=== PATIENT | female | born 1950 | race Caucasian/White ===

== ENCOUNTER 2017-01-28 15:28 | Inpatient (IN) | payer BC ==
[~2017-01-28] VITALS: Ht 165.1 cm; Wt 69.9 kg
--- NOTE | 2017-01-28 15:30 | NUR ---
BIB RA FROM [facility] PATIENT RECIEVED DIALYSIS 1.5 HOURS, PATIENT HAS ABDOMINAL DISTENTION, AND SOB, PATIENT IS NON VERBAL, PLACED ON MONITOR WITH MD AT BEDSIDE, RT AT BEDSIDE, NO OTHER MEDICAL COMPLAINTS NOTED.
[2017-01-28 15:35] VITALS: BP 129/67
[2017-01-28 15:57] LABS: BASOPHILS # (AUTO) 0.3 /CMM (0.0-0.2); BASOPHILS % (AUTO) 2.5 % (0.0-2.0); EOSINOPHILS # (AUTO) 0.2 /CMM (0.0-0.7); EOSINOPHILS % (AUTO) 1.9 % (0.0-6.0); HEMATOCRIT 34 % (33-45); HEMOGLOBIN 11.2 g/dL (11.5-14.8); LYMPHOCYTES % (AUTO) 15.1 % (20.0-44.0); MEAN CORPUSCULAR HEMOGLOBIN 28 PG (26.0-33.0); MEAN CORPUSCULAR HGB CONC 33 g/dl (31.0-36.0); MEAN CORPUSCULAR VOLUME 87 fL (82-100); MONOCYTES # (AUTO) 0.9 /CMM (0.1-1.30); MONOCYTES % (AUTO) 6.6 % (2.0-12.0); NEUTROPHILS # (AUTO) 9.6 /CMM (1.8-8.9); NEUTROPHILS % (AUTO) 73.9 % (43.0-81.0); PLATELET COUNT (AUTO) 522 /CMM (150-450); RDW COEFFICIENT OF VARIATION 20.3 (11.5-15.0); RED BLOOD CELL COUNT(AUTO) 3.93 MIL/uL (4.0-5.2)
[2017-01-28 16:15] LABS: CALCIUM, SERUM 9.1 mg/dL (8.5-10.1); CREATININE 1.7 mg/dL (0.6-1.3)
[2017-01-28 16:16] LABS: INR 1.15 (0.87-1.13); PROTHROMBIN TIME 12.1 SECS (9.5-12.7)
[2017-01-28 16:17] LABS: POTASSIUM 2.8 mmol/L (3.5-5.1)
[2017-01-28 16:20] LABS: ALBUMIN 2.7 g/dL (3.4-5.0); BILIRUBIN,DIRECT 0.1 mg/dL (0.0-0.2); BILIRUBIN,TOTAL 0.3 mg/dL (0.2-1.0); TOTAL PROTEIN, SERUM 9.5 g/dL (6.4-8.2)
[2017-01-28 16:27] LABS: TROPONIN I 0.086 ng/mL (0.00-0.056)
[2017-01-28 16:32] LABS: PARTIAL THROMBOPLASTIN TIME > 150 SEC (23-34)
[2017-01-28] MEDS ORDERED: IV SET PRIMARY PUMP SET 1 EA INFUS.SET MC ONE (16:32)
[2017-01-28] MEDS ORDERED: PIPERACILLIN /TAZOBACTAM 3.375 G VIAL IV ONE (16:32)
[2017-01-28 16:43] LABS: ABG BASE EXCESS -1.5 mmol/L; ABG PCO2 33.1 mmHg (35.0-45.0); ABG PH 7.442 (7.350-7.450); ABG PO2 80.9 mmHg (75.0-100.0); AaDO2 274.4 mmHg; MetHb 0.4 % (0.0-1.5); O2Hb 94.7 % (94.0-97.0); PEEP,BG 5 cm H2O; SITE, ABG Left Radial; VT, ABG 450 mL
[2017-01-28] MEDS ORDERED: FOLI0.8T23 GT (16:43)
[2017-01-28] MEDS ORDERED: ESCI10TA GT (16:43)
[2017-01-28] MEDS ORDERED: AMIN30LI4 GT (16:43)
[2017-01-28] MEDS ORDERED: IPRA0.2S9 IH (16:43)
[2017-01-28] MEDS ORDERED: BISA10SU8 RC (16:43)
[2017-01-28] MEDS ORDERED: ACID1TAB12 GT (16:43)
[2017-01-28] MEDS ORDERED: SIME80TA15 GT (16:43)
[2017-01-28] MEDS ORDERED: MULT-24 GT (16:43)
[2017-01-28] MEDS ORDERED: LANS30CA56 GT (16:43)
[2017-01-28] MEDS ORDERED: HEPA10009 SQ (16:43)
[2017-01-28] MEDS ORDERED: EPOE40002 SQ (16:43)
[2017-01-28] MEDS ORDERED: LEVA0.6320 IH (16:43)
[2017-01-28] MEDS ORDERED: SPIR50TA GT (16:43)
[2017-01-28] MEDS ORDERED: ACET650S26 GT (16:43)
[2017-01-28] MEDS ORDERED: METO25TA6 GT (16:43)
[2017-01-28] MEDS ORDERED: DIPH25CA6 GT (16:43)
[2017-01-28] MEDS ORDERED: ONDA-25 GT (16:43)
[2017-01-28] MEDS ORDERED: AMIO200T2 GT (16:43)
[2017-01-28] MEDS ORDERED: LORA0.5T GT (16:43)
[2017-01-28] MEDS ORDERED: INSU100V11 SQ (16:43)
[2017-01-28] MEDS ORDERED: NAPH1POW3 GT (16:45)
--- NOTE | 2017-01-28 16:53 | NUR ---
CALLED NURSING SUP. FOR NICOLE BED
[2017-01-28] MEDS ORDERED: PIPERACILLIN /TAZOBACTAM 3.375 G in IV D5W 50 ML IV ONE (17:00)
[2017-01-28 17:05] VITALS: BP 132/72
--- NOTE | 2017-01-28 17:27 | NUR ---
'S GROUP CALLED, SOLDERER ASSEMBLY REPAIR, PAGED TO CALL BACK
[2017-01-28] MEDS ORDERED: POTASSIUM CHLORIDE 20 MEQ TAB.PRT.SR PO ONE ×2 (17:30→17:59)
[2017-01-28 18:00] VITALS: BP 155/92
--- NOTE | 2017-01-28 18:00 | NUR ---
RN NOTES RECEIVED PT FROM ER IN ROOM 114-1, PT RESPONDS TO HER NAME, PT HAS CONTACT , NON VERBAL , TRACH /VENT DEPENDENT, TOLERATING CURRENT VENT SETTING WELL, ON TELE SR IN 90'S , GT FEEDING INTACT, LFA IV SITE #20 CDI, ADMISSION SKIN PHOTO TAKEN , WOUND CONSULT ORDERED , SR UP x3, CALL LIGHT WITHIN EASY REACH , CONTINUE TO MONITOR PT CLOSELY AND NOTIFY MD FOR ANY SIGNIFICANT CHANGES.
[2017-01-28] MEDS ORDERED: SIMETHICONE 80 MG TAB.CHEW GT PRN (18:30)
[2017-01-28] MEDS ORDERED: BISACODYL SUPP (10 MG) 10 MG/SUPP.RECT SUPP.RECT RC PRN (18:30)
[2017-01-28] MEDS ORDERED: HOME MED MISCELLANEOUS XX SCH (18:30)
[2017-01-28] MEDS ORDERED: LEVALBUTEROL HCL NEB 1.25 MG/0.5 ML VIAL.NEB NEB PRN (18:30)
[2017-01-28] MEDS ORDERED: ALBUTEROL FS 2.5 MG/0.5 ML VIAL.NEB NEB PRN (19:00)
[2017-01-28 20:00] VITALS: BP 88/54
--- NOTE | 2017-01-28 20:00 | NUR ---
NICOLE RN NOTE PT IN BED AWAKE. A/O X 1, UNABLE TO TALK DUE TO TRACH. REMAIN ON TRACH AND VENT SHIELY #6, AC 14, TV 450, FIO2 55%, PEEP 5, TOLERATING THE SETTING WELL. SUCTIONED HER FREQUENTLY DUE TO MODERATED THICK YELLOW SECRETIONS. ON TELE SR WITH 1ST DEGREE AV BLOCK, OCCASIONAL PVC'S HR 91. GT FEEDING STARTED NOVASOURCE AT 50 ML/HR, O ML RESIDUAL NOTED. KEPT HER HOB ELEVATED. Z GUARD APPLIED TO SACRUM AREA. DTR'S AT BED SIDE. REPOSITION HER Q2H. KEPT HER DRY AND CLEAN. ALL NEEDS ATTENDED. SIDE RAILS UP X 3 AND CALL LIGHT WITHIN REACH. CONTINUE TO MONITOR HER.
[2017-01-28 20:04] VITALS: BP 88/54
[2017-01-28] MEDS: RENAL NOVASOURCE 1,000 ML BOTTLE GT PRN (20:07)
[2017-01-28] MEDS: IPRATROPIUM NEB FS 0.5 MG/2.5 ML AMPUL.NEB IH SCH (20:09)
--- NOTE | 2017-01-28 20:30 | NUR ---
NICOLE RN NOTE DR SNELL INFORMED PT B/P IS RUNNING ON LOW SIDE 88/54, AND ALSO PTT GREATER THAN 150. DR WANTS TO HOLD HEPARIN FOR TONIGHT. AND NO NEW ORDER FOR BP, JUST CONTINUE TO MONITOR HER.
[2017-01-28] MEDS: HEPARIN SODIUM, PORCINE 5000 UNITS/1 ML VIAL SQ SCH (21:00)
[2017-01-28] MEDS ORDERED: PANTOPRAZOLE 40 MG TABLET.DR PO SCH (21:00)
[2017-01-28] MEDS: Z GUARD REMEDY 2 OZ OINT TP SCH (21:28)
[2017-01-28] MEDS: PANTOPRAZOLE 40 MG/PACK PACK GT SCH (21:29)
[2017-01-28 23:49] VITALS: BP 127/77
[2017-01-29] VITALS (9 sets, daily range): BP systolic 68–127; BP diastolic 40–77
--- NOTE | 2017-01-29 02:03 | NUR ---
NICOLE RN NOTE [facility] CALLED ME AND INFORMED ME THAT THIS PT ACCORDING TO SEPSIS CORE MEASURES PT NEED TO HAVE 2040 ML IV FLUIDS TO BE GIVEN. CALLED MD SNELL AND INFORMED HIM ABOUT THIS. PT STATES "THIS IS HEMODIALYSIS PT, NO IVF TO BE GIVEN". CHARGE NURSE MARLON ALSO INFORMED. Addendum: 01/29/17 at 0640 by GIORGIO VIRK RN PT STATES WRITTEN IN ERROR. STATES "THIS IS HEMODIALYSIS PT, NO IVF TO BE GIVEN, EXCEPT IV ATB'S".
[2017-01-29] MEDS: IPRATROPIUM NEB FS 0.5 MG/2.5 ML AMPUL.NEB IH SCH ×4 (02:11→19:52)
[2017-01-29] MEDS ORDERED: IV NS 0.9% 250 ML IV ONE (05:28)
[2017-01-29] MEDS ORDERED: IV SET PRIMARY PUMP SET 1 EA INFUS.SET MC ONE (05:29)
[2017-01-29] MEDS ORDERED: SECONDARY IV SET 1 EA INFUS.SET MC ONE (05:29)
[2017-01-29] MEDS: PIPERACILLIN /TAZOBACTAM 2.25 G in IV D5W 50 ML IV SCH ×4 (05:38→23:48)
--- NOTE | 2017-01-29 06:41 | NUR ---
NICOLE RN NOTE PT IN BED AWAKE, SON AT BED SIDE. NO DISTRESS OR DISCOMFORT NOTED. DENIES PAIN. ON TELE SR WITH 1ST DEGREE AV BLOCK HR 92. REPOSITIONED HER Q2H, KEPT HER CLEAN AND DRY Z GUARD APPLIED. SIDE RAILS UP X 2 AND CALL LIGHT WITHIN REACH. WILL ENDORSE TO DAY SHIFT NURSE FOR CONTINUE TO CARE.
--- NOTE | 2017-01-29 07:30 | NUR ---
NICOLE RN NOTE PT IN BED AWAKE.NO DISTRESS OR DISCOMFORT NOTED. DENIES PAIN. ON TELE SR WITH 1ST DEGREE AV BLOCK HR 92.I.V SITE CDI AND PATENT .SAFETY MEASURES IN PLACE BED IN LOW AND LOCKED POSITION.WILL CONTINUE TO MONITOR FOR CHANGES.
[2017-01-29 07:36] LABS: EOSINOPHILS # (AUTO) 0.2 /CMM (0.0-0.7); EOSINOPHILS % (AUTO) 2.1 % (0.0-6.0); HEMATOCRIT 33 % (33-45); HEMOGLOBIN 10.5 g/dL (11.5-14.8); LYMPHOCYTES # (AUTO) 1.5 /CMM (0.8-4.8); LYMPHOCYTES % (AUTO) 13.3 % (20.0-44.0); MEAN CORPUSCULAR HEMOGLOBIN 28 PG (26.0-33.0); MEAN CORPUSCULAR HGB CONC 32 g/dl (31.0-36.0); MEAN CORPUSCULAR VOLUME 88 fL (82-100); MONOCYTES # (AUTO) 0.8 /CMM (0.1-1.30); MONOCYTES % (AUTO) 6.9 % (2.0-12.0); NEUTROPHILS # (AUTO) 8.8 /CMM (1.8-8.9); NEUTROPHILS % (AUTO) 77.7 % (43.0-81.0); PLATELET COUNT (AUTO) 499 /CMM (150-450); RDW COEFFICIENT OF VARIATION 21.1 (11.5-15.0); RED BLOOD CELL COUNT(AUTO) 3.71 MIL/uL (4.0-5.2); WHITE BLOOD COUNT (AUTO) 11.4 K/uL (4.3-11.0)
[2017-01-29 07:57] LABS: CALCIUM, SERUM 8.8 mg/dL (8.5-10.1); CREATININE 2.3 mg/dL (0.6-1.3); PHOSPHORUS 3.1 mg/dL (2.5-4.9); POTASSIUM 2.9 mmol/L (3.5-5.1)
[2017-01-29 08:06] LABS: INR 1.01 (0.87-1.13); PROTHROMBIN TIME 10.8 SECS (9.5-12.7)
[2017-01-29] MEDS ORDERED: IV NS 0.9% 500 ML IV ONE (08:23)
--- NOTE | 2017-01-29 08:30 | NUR ---
PT HAS LOW B/P OF SBP 75. FAMILY PRESENT AT BEDSIDE.Kobi SNELL WAS NOTIFIED. RECEIVED NEW ORDER FOR BOLUS N.S 500 ML.ALL ORDERS NOTED AND CARRIED OUT.B.P RECHECKED AFTER 30 AFTER I.V FLUID ADMINISTRATION SBP 85/42. DR. FATIMA PRESENT AT BEDSIDE FOR EVALUATION.
[2017-01-29] MEDS: METOPROLOL TARTRATE 50 MG TABLET GT SCH ×2 (09:00→17:00)
[2017-01-29] MEDS: PROSOURCE / PROSTAT (PYXIS) 30 ML UDC GT SCH ×2 (09:00→16:57)
[2017-01-29] MEDS: Z GUARD REMEDY 2 OZ OINT TP SCH ×2 (09:00→21:32)
[2017-01-29] MEDS: VIT B CMPLX 3/FA/VIT C/BIOTIN 1 TAB TABLET GT SCH (09:07)
[2017-01-29] MEDS: AMIODARONE HCL 200 MG TABLET GT SCH (09:07)
[2017-01-29] MEDS: ACIDOPHILUS/BULGARICUS 1 EACH TAB.CHEW GT SCH ×2 (09:07→16:55)
[2017-01-29] MEDS: SPIRONOLACTONE 25 MG TABLET GT SCH (09:07)
[2017-01-29] MEDS: MULTIVITAMINS,THERAPEUTIC 1 UDTAB TABLET GT SCH (09:08)
[2017-01-29] MEDS: PANTOPRAZOLE 40 MG/PACK PACK GT SCH ×2 (09:08→21:29)
[2017-01-29] MEDS: NEUTRA PHOS 1 POWD.PACKET GT SCH ×2 (09:08→16:55)
[2017-01-29] MEDS: ESCITALOPRAM OXALATE (10 MG) 10 MG TABLET GT SCH (09:08)
[2017-01-29] MEDS: POTASSIUM CHLORIDE 20 MEQ POWDER PACKET NG SCH ×2 (09:11→10:51)
[2017-01-29] MEDS: HEPARIN SODIUM, PORCINE 5000 UNITS/1 ML VIAL SQ SCH ×2 (11:15→21:30)
[2017-01-29] MEDS: ACETAMINOPHEN 650 MG/20.3 ML UDC GT PRN ×2 (12:36→22:41)
[2017-01-29] MEDS: ALBUTEROL FS 2.5 MG/0.5 ML VIAL.NEB NEB SCH ×2 (13:25→19:52)
[2017-01-29] MEDS: RENAL NOVASOURCE 1,000 ML BOTTLE GT PRN (19:41)
--- NOTE | 2017-01-29 20:00 | NUR ---
NICOLE RN NOTE PT IN BED AWAKE. A/O X 2, UNABLE TO TALK DUE TO TRACH. PT ON MECHANICAL VENT. PORTEX #6 AC 14 TV 450 FIO2 55 PEEP 5. PT DENIES PAIN. NO DISTRESS OR DISCOMFORT NOTED. GTF NOVASOURCE INFUSING AT 30 ML/HR, 0 ML RESIDUAL NOTED. RATE IS REDUCED DURING THE DAY SHIFT PER DAY SHIFT NURSE WANTS RATE TO BE 30 ML/HR. PT IS TOLERATING THE FEEDING WELL. KEPT HOB ELEVATED. ON TELE SR WITH 1ST DEGREE AV BLOCK WITH BBB HR 89. REPOSITION HER Q2H. KEPT HER DRY AND CLEAN. ALL NEEDS ATTENDED. SIDE RAILS UP X 3 AND CALL LIGHT WITHIN REACH. VSS. B/P IS 102/67 AT THIS TIME. CONTINUE TO MONITOR HER.
--- NOTE | 2017-01-29 22:45 | NUR ---
NICOLE RN NOTE PT C/O MINOR PAIN IN ABD 10/21. TYLENOL 650 MG VIA GT GIVEN. CONTINUE TO MONITOR HER. SON AT BED SIDE.
[2017-01-30] VITALS: BP 99/58
[2017-01-30] MEDS: IPRATROPIUM NEB FS 0.5 MG/2.5 ML AMPUL.NEB IH SCH ×4 (00:36→19:26)
[2017-01-30] MEDS: ALBUTEROL FS 2.5 MG/0.5 ML VIAL.NEB NEB SCH ×4 (00:37→19:26)
[2017-01-30] MEDS: ONDANSETRON 4 MG TAB.RAPDIS PO PRN ×2 (01:45→21:09)
--- NOTE | 2017-01-30 01:52 | NUR ---
PRN ZOFRAN 4 MG VIA G TUBE GIVEN FOR C/O NAUSEA . WILL REASSESS. PRIMARY NURSE MADE AWARE .
--- NOTE | 2017-01-30 02:22 | NUR ---
NICOLE RN NOTE NAUSEA SUBSIDED. PT FALL ASLEEP, AROUSABLE. CONTINUE TO MONITOR HER. GTF INFUSING WELL, 0 ML RESIDUAL NOTED. REPOSITION HER Q2H. KEPT HER DRY AND CLEAN. ALL NEEDS ATTENDED.
[2017-01-30 04:00] VITALS: BP 96/59
[2017-01-30] MEDS: PIPERACILLIN /TAZOBACTAM 2.25 G in IV D5W 50 ML IV SCH ×2 (05:32→12:01)
--- NOTE | 2017-01-30 06:34 | NUR ---
NICOLE RN NOTE PT IN BED AWAKE, NO DISTRESS OR DISCOMFORT NOTED. DENIES PAIN. ON TELE SR WITH 1ST DEGREE AV BLOCK AND BBB HR 94. REPOSITIONED HER Q2H, KEPT HER CLEAN AND DRY Z GUARD APPLIED. SIDE RAILS UP X 2 AND CALL LIGHT WITHIN REACH. WILL ENDORSE TO DAY SHIFT NURSE FOR CONTINUE TO CARE.
[2017-01-30 06:57] LABS: EOSINOPHILS # (AUTO) 0.2 /CMM (0.0-0.7); EOSINOPHILS % (AUTO) 1.1 % (0.0-6.0); HEMATOCRIT 28 % (33-45); HEMOGLOBIN 9.1 g/dL (11.5-14.8); LYMPHOCYTES # (AUTO) 1.5 /CMM (0.8-4.8); LYMPHOCYTES % (AUTO) 10.3 % (20.0-44.0); MEAN CORPUSCULAR HEMOGLOBIN 29 PG (26.0-33.0); MEAN CORPUSCULAR HGB CONC 33 g/dl (31.0-36.0); MEAN CORPUSCULAR VOLUME 89 fL (82-100); MONOCYTES # (AUTO) 0.8 /CMM (0.1-1.30); MONOCYTES % (AUTO) 5.4 % (2.0-12.0); NEUTROPHILS # (AUTO) 12.2 /CMM (1.8-8.9); NEUTROPHILS % (AUTO) 83.2 % (43.0-81.0); PLATELET COUNT (AUTO) 457 /CMM (150-450); RDW COEFFICIENT OF VARIATION 21.1 (11.5-15.0); RED BLOOD CELL COUNT(AUTO) 3.11 MIL/uL (4.0-5.2); WHITE BLOOD COUNT (AUTO) 14.7 K/uL (4.3-11.0)
[2017-01-30 07:18] LABS: ALBUMIN 2.3 g/dL (3.4-5.0); BILIRUBIN,TOTAL 0.3 mg/dL (0.2-1.0); CALCIUM, SERUM 8.4 mg/dL (8.5-10.1); PHOSPHORUS 4.2 mg/dL (2.5-4.9); POTASSIUM 4.6 mmol/L (3.5-5.1); TOTAL PROTEIN, SERUM 8.4 g/dL (6.4-8.2)
[2017-01-30 07:20] LABS: TROPONIN I 0.029 ng/mL (0.00-0.056)
--- NOTE | 2017-01-30 07:30 | NUR ---
NICOLE RN NOTE PT IN BED AWAKE, NO DISTRESS OR DISCOMFORT NOTED. DENIES PAIN. ON TELE SR WITH 1ST DEGREE AV BLOCK AND BBB HR 94. REPOSITIONED HER Q2H, KEPT HER CLEAN AND DRY Z GUARD APPLIED. SIDE RAILS UP X 2 AND CALL LIGHT WITHIN REACH. SAFETY MEASURES IN PLACE.BED IN LOW AND LOCKED POSITION.WILL CONTINUE TO MONITOR CHANGES.
[2017-01-30 08:00] VITALS: BP 91/46
[2017-01-30] MEDS: ESCITALOPRAM OXALATE (10 MG) 10 MG TABLET GT SCH (08:50)
[2017-01-30] MEDS: SPIRONOLACTONE 25 MG TABLET GT SCH (08:50)
[2017-01-30] MEDS: PANTOPRAZOLE 40 MG/PACK PACK GT SCH ×2 (08:50→21:09)
[2017-01-30] MEDS: HEPARIN SODIUM, PORCINE 5000 UNITS/1 ML VIAL SQ SCH ×2 (08:51→21:11)
[2017-01-30] MEDS: VIT B CMPLX 3/FA/VIT C/BIOTIN 1 TAB TABLET GT SCH (08:52)
[2017-01-30] MEDS: AMIODARONE HCL 200 MG TABLET GT SCH (08:52)
[2017-01-30] MEDS: MULTIVITAMINS,THERAPEUTIC 1 UDTAB TABLET GT SCH (08:52)
[2017-01-30] MEDS: ACIDOPHILUS/BULGARICUS 1 EACH TAB.CHEW GT SCH ×2 (08:52→17:32)
[2017-01-30] MEDS: NEUTRA PHOS 1 POWD.PACKET GT SCH ×2 (08:52→17:32)
[2017-01-30] MEDS: PROSOURCE / PROSTAT (PYXIS) 30 ML UDC GT SCH ×2 (08:57→17:35)
[2017-01-30] MEDS: METOPROLOL TARTRATE 50 MG TABLET GT SCH ×2 (08:57→17:00)
[2017-01-30] MEDS: Z GUARD REMEDY 2 OZ OINT TP SCH ×2 (09:00→21:10)
--- NOTE | 2017-01-30 11:08 | NUR ---
WOUND CARE CONSULT: PT PRESENTS WITH INCONTINENCE OF LOOSE STOOL. PT IS IMMOBILE AND HAS EXCORIATED AREAS AND REDNESS TO PERIANAL AREA AND BUTTOCKS, PRESENT ON ADMISSION. RECOMMENDATIONS MADE FOR SKIN PROTECTION. DISCUSSED WITH NURSING STAFF. PT ON [place] ISOFLEX LOW AIRLOSS BED. ALL SKIN PROTECTION MEASURES IN PLACE. MD IN AGREEMENT WITH PLAN OF CARE. Addendum: 01/30/17 at 1110 by KELLEN FOUNTAIN WNDNU Amended: Links added.
[2017-01-30 12:00] VITALS: BP 96/68
[2017-01-30] MEDS ORDERED: SECONDARY IV SET 1 EA INFUS.SET MC ONE ×2 (14:47→17:29)
[2017-01-30 16:00] VITALS: BP_SYST 86; BP_SYST 99; BP_DIAS 55; BP_DIAS 63
[2017-01-30] MEDS: MEROPENEM 500 MG in IV NS 0.9% 50 ML IV SCH (17:31)
[2017-01-30 20:00] VITALS: BP 95/51
--- NOTE | 2017-01-30 20:00 | NUR ---
NICOLE RN NOTE PT IN BED SEMIFOWLER. A/O X 2-3, UNABLE TO TALK DUE TO TRACH. ABLE TO MAKE NEEDS KNOWN BY FACIAL EXPRESSIONS. REMAIN ON VENT AND TOLERATING THE SETTINGS. RT AT BED SIDE. O2 SAT 94%. GTF NOVASOURCE INFUSING WELL AT 30 mL/HR, 0 ML RESIDUAL NOTED. REPOSITION HER FOR SKIN MANAGEMENT AND WILL DO EVERY 2 HRS. SIDE RAILS UP X 3 AND CALL LIGHT WITHIN REACH. VSS. CONTINUE TO MONITOR HER. Addendum: 01/30/17 at 2049 by GIORGIO VIRK RN ON TELE SR WITH 1ST DEGREE AV BLOCK, BBB HR HR 81.
[2017-01-30] MEDS: LINEZOLID 600 MG TABLET PO SCH (21:09)
[2017-01-30] MEDS: MUPIROCIN OINT 2% 22 GM TUBE SCH (21:09)
[2017-01-30] MEDS: RENAL NOVASOURCE 1,000 ML BOTTLE GT PRN (21:26)
--- NOTE | 2017-01-30 21:45 | NUR ---
NICOLE RN NOTE PT IS C/O NAUSEA, ZOFRAN 4 MG VIA GT GIVEN. GTF INFUSING WELL, CONTINUE TO MONITOR HER.
--- NOTE | 2017-01-30 22:45 | NUR ---
NICOLE RN NOTE NAUSEA SUBSIDED. PT IN BED AWAKE. DENIES ANY DISCOMFORT.
[2017-01-31] VITALS: BP 95/49
[2017-01-31] MEDS: IPRATROPIUM NEB FS 0.5 MG/2.5 ML AMPUL.NEB IH SCH ×4 (00:40→20:07)
[2017-01-31] MEDS: ALBUTEROL FS 2.5 MG/0.5 ML VIAL.NEB NEB SCH ×4 (00:40→20:07)
[2017-01-31 04:00] VITALS: BP 91/42
[2017-01-31] MEDS: MEROPENEM 500 MG in IV NS 0.9% 50 ML IV SCH ×2 (05:28→17:06)
--- NOTE | 2017-01-31 06:36 | NUR ---
NICOLE RN NOTE PT IN BED ASLEEP, AROUSABLE. NO DISTRESS OR DISCOMFORT NOTED. DENIES PAIN.GTF INFUSING WELL, 0 ML RESIDUAL NOTED. ON TELE SR WITH 1ST DEGREE AV BLOCK, BBB. HR 76. REPOSITION HER Q2H, KEPT HER DRY AND CLEAN. ALL NEEDS ATTENDED. WILL ENDORSE TO DAY SHIFT NURSE FOR CONTINUE TO CARE.
--- NOTE | 2017-01-31 07:10 | NUR ---
RN INITIAL NOTE RECEIVED REPORT FORM GIORGIO VILLA PM SHIFT FOR TOÑO. PT A/OX2-3 NONVERBAL ABLE TO NOD TO NEEDS AND WANTS.TELE SR 1ST DEGREE AV BLOCK WITH BBB. VENT SHILEY #6 AC 14 TV 450 FIO2 55% PEEP 5. GTF NOVASOURCE 30ML/HR PLACEMENT CK FEEDING INTACT. IV LFA #20G PATENT FLUSHED AND INTACT, RCW JUAN ANTONIO CATH FOR HD. ALL SAFETY MEASURES IN PLACE. WILL CONTINUE TO MONITOR.
[2017-01-31] MEDS ORDERED: IV NS 0.9% 250 ML IV ONE (07:53)
[2017-01-31 08:00] VITALS: BP 89/58
[2017-01-31] MEDS: VIT B CMPLX 3/FA/VIT C/BIOTIN 1 TAB TABLET GT SCH (08:17)
[2017-01-31] MEDS: MULTIVITAMINS,THERAPEUTIC 1 UDTAB TABLET GT SCH (08:17)
[2017-01-31] MEDS: NEUTRA PHOS 1 POWD.PACKET GT SCH ×2 (08:17→17:15)
[2017-01-31] MEDS: ACIDOPHILUS/BULGARICUS 1 EACH TAB.CHEW GT SCH ×2 (08:17→17:13)
[2017-01-31] MEDS: ESCITALOPRAM OXALATE (10 MG) 10 MG TABLET GT SCH (08:17)
[2017-01-31] MEDS: METOPROLOL TARTRATE 50 MG TABLET GT SCH ×2 (08:18→17:00)
[2017-01-31] MEDS: LINEZOLID 600 MG TABLET PO SCH ×2 (08:18→21:38)
[2017-01-31] MEDS: PANTOPRAZOLE 40 MG/PACK PACK GT SCH ×2 (08:22→21:38)
[2017-01-31] MEDS: MUPIROCIN OINT 2% 22 GM TUBE SCH ×2 (08:22→21:38)
[2017-01-31] MEDS: Z GUARD REMEDY 2 OZ OINT TP SCH ×2 (08:23→21:39)
[2017-01-31] MEDS: HEPARIN SODIUM, PORCINE 5000 UNITS/1 ML VIAL SQ SCH ×2 (08:23→21:40)
[2017-01-31] MEDS: PROSOURCE / PROSTAT (PYXIS) 30 ML UDC GT SCH ×2 (08:26→17:14)
[2017-01-31] MEDS: SPIRONOLACTONE 25 MG TABLET GT SCH (08:29)
[2017-01-31] MEDS: AMIODARONE HCL 200 MG TABLET GT SCH (08:30)
--- NOTE | 2017-01-31 08:45 | NUR ---
RT PATIENT REC'D TRACHED ON [facility] VENT WITH SETTINGS SET BY MD OMER TOLERATED WELL. VENT ALARMS CHECKED + AUDIBLE. CUFF PRESSURE CHECKED MUD CLEANER OPERATOR. TRACH SECURE + IN PROPER POSITION. B/S DIM COARSE. SUCTIONED WITH MOD AMT PALE SEMITHICK SECRETIONS. PATIENT NON RESPONSIVE, APPEARS COMFORTABLE AND IN NO DISTRESS AT THIS TIME. AMBU BAG AT HOB. CONT CURRENT PLAN OF RESPIRATORY CARE. Addendum: 01/31/17 at 0848 by EMBER COOPER RT Amended: Links added.
--- NOTE | 2017-01-31 10:00 | NUR ---
RN NOTE HD TODAY. [facility]IER HD NURSE @ BEDSIDE.
[2017-01-31 12:00] VITALS: BP 85/50
[2017-01-31] MEDS ORDERED: ALBUMIN 25% 25 GM in PREMIX 1 EA IV PRN (12:00)
[2017-01-31] MEDS ORDERED: SECONDARY IV SET 1 EA INFUS.SET MC ONE (12:20)
[2017-01-31 16:00] VITALS: BP 100/43
[2017-01-31] MEDS: RENAL NOVASOURCE 1,000 ML BOTTLE GT PRN (17:07)
[2017-01-31] MEDS: NYSTATIN TOP POWDER 15 GM BOTTLE TP SCH (17:51)
--- NOTE | 2017-01-31 19:12 | NUR ---
RN CLOSING NOTE REPORT GIVEN TO GIORGIO RN PM SHIFT FOR TOÑO. PT A/OX 3 NONVERBAL ABLE TO NOD TO NEEDS AND WANTS.TELE SR 1ST DEGREE AV BLOCK WITH BBB. VENT SHILEY #6 AC 14 TV 450 FIO2 55% PEEP 5. GTF NOVASOURCE 30ML/HR TOLERATED FEEDING THROUGH OUT SHIFT. IV LFA #20G PATENT FLUSHED AND INTACT, RCW JUAN ANTONIO CATH FOR HD. ALL SAFETY MEASURES IN PLACE. ALL MEDICATIONS GIVEN ALL ORDERS CARRIED OUT.
[2017-01-31 20:00] VITALS: BP_SYST 77; BP_SYST 80; BP_DIAS 34
--- NOTE | 2017-01-31 20:00 | NUR ---
TELE 1 RN NOTE PT IN BED SEMIFOWLER. A/O X 2-3, UNABLE TO TALK DUE TO TRACH. ABLE TO MAKE NEEDS KNOWN BY FACIAL EXPRESSIONS. REMAIN ON VENT AND TOLERATING THE SETTINGS. SUCTIONED HER FREQUENTLY SMALL THIN SECRETIONS NOTED. RT AT BED SIDE. O2 SAT 95%. GTF NOVASOURCE INFUSING WELL AT 30 mL/HR, 0 ML RESIDUAL NOTED. PT IS HYPOTENSIVE. REPOSITION HER FOR SKIN MANAGEMENT,SIDE RAILS UP X 3 AND CALL LIGHT WITHIN REACH. CONTINUE TO MONITOR HER.
[2017-02-01] VITALS (55 sets, daily range): BP systolic 80–111; BP diastolic 35–76
[2017-02-01] MEDS: ALBUTEROL FS 2.5 MG/0.5 ML VIAL.NEB NEB SCH ×4 (01:47→19:56)
[2017-02-01] MEDS: IPRATROPIUM NEB FS 0.5 MG/2.5 ML AMPUL.NEB IH SCH ×4 (01:48→19:56)
--- NOTE | 2017-02-01 03:49 | NUR ---
TELE 1 RN NOTE RT AT BED SIDE, SUCTIONED THE PT. PER RT FIO2 70%. O2 SAT 91%, PT SHOW NO DISTRESS OR DISCOMFORT. PAGED DR SILVER.
--- NOTE | 2017-02-01 04:00 | NUR ---
TELE [address] SILVER AGAIN. ALSO REPORT GIVEN TO NURSE YI FOR CONTINUE TO CARE.
--- NOTE | 2017-02-01 04:13 | NUR ---
TELE [address] SILVER CALLED BACK AND INFORMED HIM ABOUT FIO2 70%, DR SILVER INFORMED ME TO CALL DR BRYANT. DR BRYANT. PAGED.
--- NOTE | 2017-02-01 04:19 | NUR ---
LUMP ROOM SUPERVISOR [address] DELACRUZ IS ONCALL AND HE CALLED BACK, INFORMED MD ABOUT PT WAS DESATURATING AT 85% AT 55% FIO2 AND PER RT FIO2 INCREASED TO 70% AND O2 SAT 91%. PT IN NO DISTRESS OR DISCOMFORT. NOT USING ACCESSORY MUSCLES. PER MD IT IS OK TO CHANGE THE STATUS TO ICU PER PROTOCOL. NURSE YI INFORMED. CHARGE NURSE AND NURSING INDUSTRIAL TRAINING SPECIALIST ALSO INFORMED. PT IS TRANSFERED TO ROOM 106.
--- NOTE | 2017-02-01 04:20 | NUR ---
RN NOTES RECEIVED REPORT FROM NURSE ALVARES. TRANSFERRED PATIENT FROM ROOM 114-1 TO ROOM 106 VIA ACLS PROTOCOL WITH RT AT BEDSIDE, TOLERATED TRANSFER WELL. TRACH MIDLINE AND INTACT, ON MECHANICAL VENT AT PRESCRIBED SETTINGS, TOLERATING WELL, SPO2 @ 91%. IV SITE INFILTRATED, REMOVED, PRESSURE DRESSING APPLIED, NEW IV INSERTED, #[id number] TO LEFT FOREARM, WILL RESUME SCHEDULED IV ANTIBIOTICS. PLACED ON TELEMETRY MONITORING, REVEALING SINUS RHYTHM WITH 1ST AVB AND BBB, HR = 74. GT PATENT AND INTACT, TUBE FEEDINGS RESUMED ORDERED. PATIENT MADE COMFORTABLE. WILL CONTINUE TO CLOSELY MONITOR
[2017-02-01] MEDS: MEROPENEM 500 MG in IV NS 0.9% 50 ML IV SCH ×2 (05:05→16:51)
[2017-02-01] MEDS: ONDANSETRON 4 MG TAB.RAPDIS PO PRN (05:19)
[2017-02-01 06:41] LABS: EOSINOPHILS # (AUTO) 0.2 /CMM (0.0-0.7); EOSINOPHILS % (AUTO) 1.4 % (0.0-6.0); HEMATOCRIT 28 % (33-45); LYMPHOCYTES # (AUTO) 1.2 /CMM (0.8-4.8); LYMPHOCYTES % (AUTO) 10.6 % (20.0-44.0); MEAN CORPUSCULAR HEMOGLOBIN 29 PG (26.0-33.0); MEAN CORPUSCULAR HGB CONC 33 g/dl (31.0-36.0); MEAN CORPUSCULAR VOLUME 89 fL (82-100); MONOCYTES # (AUTO) 0.7 /CMM (0.1-1.30); MONOCYTES % (AUTO) 6.5 % (2.0-12.0); NEUTROPHILS # (AUTO) 9.3 /CMM (1.8-8.9); NEUTROPHILS % (AUTO) 81.5 % (43.0-81.0); PLATELET COUNT (AUTO) 368 /CMM (150-450); RED BLOOD CELL COUNT(AUTO) 3.09 MIL/uL (4.0-5.2); WHITE BLOOD COUNT (AUTO) 11.4 K/uL (4.3-11.0)
[2017-02-01 06:52] LABS: INR 1.03 (0.87-1.13)
[2017-02-01 06:56] LABS: ALBUMIN 2.5 g/dL (3.4-5.0); BILIRUBIN,TOTAL 0.3 mg/dL (0.2-1.0); CALCIUM, SERUM 8.7 mg/dL (8.5-10.1); CREATININE 2.2 mg/dL (0.6-1.3); MAGNESIUM 1.6 mg/dL (1.8-2.4); PHOSPHORUS 4.1 mg/dL (2.5-4.9); POTASSIUM 3.9 mmol/L (3.5-5.1); TOTAL PROTEIN, SERUM 8.4 g/dL (6.4-8.2)
--- NOTE | 2017-02-01 07:00 | NUR ---
RN CLOSING NOTES PATIENT RESTING IN BED, APPEARS COMFORTABLY, TOLERATING CURRENT VENT SETTINGS. WILL ENDORSE THE PATIENT TO THE AM SHIFT NURSE FOR TOÑO
--- NOTE | 2017-02-01 08:00 | NUR ---
ICU/RN AM SHIFT INITIAL NOTES RECEIVED PT AWAKE IN BED. PT A/O X 2 ABLE TO MAKE NEEDS KNOWN BY NODDING OR MOUTHING WORDS. NO ACUTE CHANGE OF CONDITION NOTED. PT DENIES PAIN. ON VENTILATOR WITH FIO2 70%, SATURATING @ 98%. PT SUCTIONED FOR AIRWAY CLEARANCE. ON TELE WITH SINUS RHYTHM, HR 72. IV SITE FLUSHED, PATENT WITH NO S/S OF INFECTION, SL. GTF @ 30CC/HR, FLUSHED WITH NO NOTED GASTRIC RESIDUAL. PT IS COMFORTABLE AT THIS TIME. SCHEDULED AM MEDS TO BE GIVEN. CL WITHIN REACHED, SAFETY MAINTAINED AND ISOLATION OBSERVED.
[2017-02-01] MEDS: ACIDOPHILUS/BULGARICUS 1 EACH TAB.CHEW GT SCH ×2 (08:39→16:52)
[2017-02-01] MEDS: LINEZOLID 600 MG TABLET PO SCH ×2 (08:39→21:19)
[2017-02-01] MEDS: AMIODARONE HCL 200 MG TABLET GT SCH (08:39)
[2017-02-01] MEDS: NEUTRA PHOS 1 POWD.PACKET GT SCH ×2 (08:39→16:51)
[2017-02-01] MEDS: ESCITALOPRAM OXALATE (10 MG) 10 MG TABLET GT SCH (08:40)
[2017-02-01] MEDS: HEPARIN SODIUM, PORCINE 5000 UNITS/1 ML VIAL SQ SCH ×2 (08:40→21:21)
[2017-02-01] MEDS: MULTIVITAMINS,THERAPEUTIC 1 UDTAB TABLET GT SCH (08:40)
[2017-02-01] MEDS: VIT B CMPLX 3/FA/VIT C/BIOTIN 1 TAB TABLET GT SCH (08:40)
[2017-02-01] MEDS: PROSOURCE / PROSTAT (PYXIS) 30 ML UDC GT SCH ×2 (08:40→16:52)
[2017-02-01] MEDS: PANTOPRAZOLE 40 MG/PACK PACK GT SCH ×2 (08:40→21:19)
[2017-02-01] MEDS: METOPROLOL TARTRATE 50 MG TABLET GT SCH ×2 (08:40→16:46)
[2017-02-01] MEDS: NYSTATIN TOP POWDER 15 GM BOTTLE TP SCH ×2 (08:41→16:52)
[2017-02-01] MEDS: MUPIROCIN OINT 2% 22 GM TUBE SCH ×2 (08:41→21:20)
[2017-02-01] MEDS: SPIRONOLACTONE 25 MG TABLET GT SCH (08:41)
[2017-02-01] MEDS: Z GUARD REMEDY 2 OZ OINT TP SCH ×2 (08:42→21:20)
[2017-02-01 08:48] LABS: ABG BASE EXCESS 6.8 mmol/L; ABG PH 7.476 (7.350-7.450); ABG PO2 64.4 mmHg (75.0-100.0); AaDO2 388.5 mmHg; MetHb 0.3 % (0.0-1.5); O2Hb 90.8 % (94.0-97.0); SITE, ABG Left Radial; VENT MODE, BG AC 14 450 70%
--- NOTE | 2017-02-01 10:00 | NUR ---
ICU/RN LOW BP CALLED PHONE EXCHANGE NOTIFIED DR. SNELL OF PT'S LOW BP. 84/44, HR 61. THEN RECHECKED, BP 90/42, HR 61. NEW ORDERS NOTED. DR. SNELL ORDERED NEW MEDICATION, MIDODRINE 5MG TID. NEW ORDER NOTED. ON GOING MONITORING.
--- NOTE | 2017-02-01 10:00 | NUR ---
ICU/RN ROUNDS - DR. BRYANT UPDATED PT'S CONDITION. WITH VERBAL ORDERS TO INCREASE PEEP RATE FROM 5 TO 8. RT NOTIFIED. ORDER CARRIED OUT. ON GOING MONITORING.
--- NOTE | 2017-02-01 10:12 | NUR ---
ICU/RN VENT CHANGE PEEP RATE CHANGE FROM 5 TO 8. NO SOB NOTED. MONITORING CONTINUED.
--- NOTE | 2017-02-01 11:10 | NUR ---
ICU/RN VENT CHANGE - FIO2 FIO2 RATE CHANGE FROM 70% TO 60%. PT SOB NOTED. O2 SATURATION TO KEEP ABOVE 94%. MONITORING CONTINUED.
--- NOTE | 2017-02-01 12:00 | NUR ---
olericulture teacher received pt in bed on vent trached sat 96%, vent settings noted, ambu bag at bedside, pt on monitor vs stable on levophed low dose, gt present clamped, pt is obtunded, iv access patent infusing meds and fluids, turn and reposition in bed fall precautions taken call light w/ in reach fall precautions taken call light w/ in reach.
--- NOTE | 2017-02-01 12:00 | NUR ---
rn neonatal icu pt in bed awake alert x2 on vent trached settings noted, sr on tele 60s sbp slightly low 90s, pt has gt feeding running as ordered with 40cc residual, pt iv access patent infusing tko, pt is on low air loss bed, provided valentino care pt had a diarrhea sent sediment for cdif culture, pt has severe redness and excoriation on valentino area and inner upper thighs, turn and reposition in bed provided complete lenen change, vs stable will continue to monitor.
[2017-02-01] MEDS: MIDODRINE HCL (5MG) 5 MG TABLET PO SCH ×2 (12:28→16:52)
--- NOTE | 2017-02-01 12:34 | NUR ---
ICU/RN PT ENDORSED - NEW ASSIGNED NURSE REPORT GIVEN TO NURSE RENY TO CONTINUE CARE.
[2017-02-01] MEDS: LORAZEPAM 0.5 MG TABLET GT PRN (19:10)
--- NOTE | 2017-02-01 19:56 | NUR ---
PT RCVD ON VENT WITH NOTED SETTINGS. SXN SMALL AMOUNT OF YELLOWISH WHITE SEMI THICK SECRETIONS. BILATERAL BS NOTED. VENT ALARM CHECKED AND AUDIBLE. VENT PLUGGED INTO RED OUTLET,AMBU BAG AT [facility]. NO RESPIRATORY DISTRESS NOTED, WILL CONTINUE TO MONITOR.
--- NOTE | 2017-02-01 20:00 | NUR ---
RN INITIAL NOTE; PT ON THE BED WITHOUT ANY DISTRESS , PT ABLE TO MOUTH WORD. ON MECH VENT , SETTINGS ORDERED , SHOWING SR 60s ON MONITOR . LFA 22 G PERIPHERAL IV INTACT AND PATENT , G TUBE INTACT AND PATENT WITH CONTINUE NOVASOURCE AT 30 ML/HR , RESIDUAL NOTED 20 ML. ASPIRATION PRECAUTION APPLIED. PT IS ANURIC. BED IN THE LOWEST/LOCKED POSITION. SAFETY MEASURES APPLIED, WILL TURN AND REPOSITIONED Q2H . WILL CONTINUE TO MONITOR .
[2017-02-02] VITALS (32 sets, daily range): BP systolic 82–122; BP diastolic 44–64
[2017-02-02] MEDS ORDERED: IV NS 0.9% 500 ML IV ONE ×3 (01:18→07:30)
--- NOTE | 2017-02-02 01:27 | NUR ---
RN NOTE; DR SNELL PAGED RE; PTS LOW BP 81/54 MM OF HG , TALKED TO DIRECTOR TRUST DR SUGGS , RECEIVED ORDER TO GIVE IV NS BOLUS 500 ML X 1 , IF SBP DOESNOT MAINTAIN AT 90 AFTER THE BOLUS THAN START ON DOPAMINE DRIP TITRATION . ORDER READ BACK AND VERIFIED. WILL CARRY OUT AN ORDER .
[2017-02-02] MEDS: IPRATROPIUM NEB FS 0.5 MG/2.5 ML AMPUL.NEB IH SCH ×4 (01:35→19:22)
[2017-02-02] MEDS: ALBUTEROL FS 2.5 MG/0.5 ML VIAL.NEB NEB SCH ×4 (01:35→19:22)
[2017-02-02] MEDS: RENAL NOVASOURCE 1,000 ML BOTTLE GT PRN (01:59)
[2017-02-02] MEDS: MEROPENEM 500 MG in IV NS 0.9% 50 ML IV SCH ×2 (04:55→16:53)
[2017-02-02] MEDS ORDERED: IV SET PRIMARY PUMP SET 1 EA INFUS.SET MC ONE ×2 (05:02→05:36)
[2017-02-02] MEDS ORDERED: IV NS 0.9% 250 ML IV ONE (05:02)
[2017-02-02] MEDS ORDERED: DOPamine 400MG/D5W 250ML RTU 250 ML IV ONE (05:35)
[2017-02-02] MEDS ORDERED: DOPamine 400 MG in IV D5W 250 ML IV PRN (06:00)
--- NOTE | 2017-02-02 06:00 | NUR ---
RN NOTE; PT BP 93/50 MM OF HG , DOPAMINE DRIP HELD AT THIS TIME , WILL CONTINUE TO MONITOR .
--- NOTE | 2017-02-02 06:29 | NUR ---
RN NOTE; PAGED ONCALL DR SUGGS TO GET A PICC LINE INSERTION ORDER FOR DOPAMINE DRIP . AWAITING CALL BACK .
--- NOTE | 2017-02-02 06:49 | NUR ---
RN NOTE; DR SUGGS CALLED BACK WITH THE ORDER TO GIVE IV BOLUS X 1 AGAIN FOR LOW BP , TO D/C THE DOPAMINE DRIP ORDER AND HOLD THE PICC LINE INSERTION AT THIS TIME . WILL CARRY OUT THE ORDER.
--- NOTE | 2017-02-02 07:23 | NUR ---
RN EOS NOTE; PT IN THE BED WITHOUT ANY DISTRESS , BP SHOWING 111/55 MM OF HG AT THIS TIME , MECH VENT SETTING TOLERATED WELL. TOTAL CARE RENDERED , ALL NEEDS ATTENDED PROMPTLY. REPORT GIVEN TO ALLEN COHEN
--- NOTE | 2017-02-02 07:30 | NUR ---
DEVELOPMENT MANAGER Note: Received pt on bed, awake, alert oriented to person. No c/o pain. Able to follow simple command. On trache to mechanical ventilation, AC/VC with rate of14, PEEP-5, FIO2-50 saturating 100%. NGT feeding with Novasource Renal at 30 ml/hr tolerating well. Turned and repositioned for comfort. Continue to monitor.
[2017-02-02] MEDS: Z GUARD REMEDY 2 OZ OINT TP SCH ×2 (09:00→20:54)
[2017-02-02] MEDS: ACIDOPHILUS/BULGARICUS 1 EACH TAB.CHEW GT SCH ×2 (09:12→16:54)
[2017-02-02] MEDS: HEPARIN SODIUM, PORCINE 5000 UNITS/1 ML VIAL SQ SCH ×2 (09:13→21:01)
[2017-02-02] MEDS: PROSOURCE / PROSTAT (PYXIS) 30 ML UDC GT SCH ×2 (09:14→17:01)
[2017-02-02] MEDS: ESCITALOPRAM OXALATE (10 MG) 10 MG TABLET GT SCH (09:15)
[2017-02-02] MEDS: MULTIVITAMINS,THERAPEUTIC 1 UDTAB TABLET GT SCH (09:17)
[2017-02-02] MEDS: AMIODARONE HCL 200 MG TABLET GT SCH (09:18)
[2017-02-02] MEDS: MIDODRINE HCL (5MG) 5 MG TABLET PO SCH ×3 (09:18→16:54)
[2017-02-02] MEDS: LINEZOLID 600 MG TABLET PO SCH ×2 (09:19→20:54)
[2017-02-02 09:22] LABS: ABG BASE EXCESS 3.8 mmol/L; ABG OXYGEN SATURATION 98.2 % (92.0-98.5); ABG PCO2 48.9 mmHg (35.0-45.0); ABG PH 7.395 (7.350-7.450); ABG PO2 129.5 mmHg (75.0-100.0); COHb 0.5 % (0.5-1.5); MetHb 0.3 % (0.0-1.5); O2Hb 97.4 % (94.0-97.0); PEEP,BG 8 cm H2O; SITE, ABG Left Radial; VT, ABG 450 mL
[2017-02-02] MEDS: NEUTRA PHOS 1 POWD.PACKET GT SCH ×2 (09:25→16:27)
[2017-02-02] MEDS: VIT B CMPLX 3/FA/VIT C/BIOTIN 1 TAB TABLET GT SCH (09:26)
[2017-02-02] MEDS: PANTOPRAZOLE 40 MG/PACK PACK GT SCH ×2 (09:27→20:54)
[2017-02-02] MEDS: NYSTATIN TOP POWDER 15 GM BOTTLE TP SCH ×2 (09:28→16:55)
[2017-02-02] MEDS: MUPIROCIN OINT 2% 22 GM TUBE SCH ×2 (09:30→20:54)
[2017-02-02 10:11] LABS: HEMOGLOBIN 8.6 g/dL (11.5-14.8)
[2017-02-02] MEDS ORDERED: EPOETIN ALFA (10,000 UNIT) 10,000 UNIT/ML VIAL IV ONE (10:30)
--- NOTE | 2017-02-02 19:15 | NUR ---
RN INITIAL NOTES RECEIVED PATIENT IN BED, AWAKE AND ALERT, ABLE TO MOUTH WORDS AND COMMUNICATE WITH GESTURES. SR ON TELE, HR OF 62. WITH TRACH ON MIDLINE, TOLERATING MECH VENT SETTINGS WELL, AIRWAY SUCTIONED AND KEPT CLEAR. WITH GTF, INFUSING WELL, NO GASTRIC RESIDUAL NOTED. WITH R CHESTWALL JUAN ANTONIO CATH, DRESSING INTACT. L CHESTWALL PACEMAKER. L WRIST G22, ON SL, INTACT AND PATENT, NO SIGNS OF INFILTRATION. PATIENT'S NEEDS ANTICIPATED AND MET. SAFETY AND COMFORT ENSURED. BED IN LOW AND LOCKED POSITION. HOB ELEVATED. WILL CONTINUE TO MONITOR.
--- NOTE | 2017-02-02 19:15 | NUR ---
RN CLOSING NOTES: CONTINUED GIVING CARE TO PT. PT TOLERATED PRESCRIBED MECH VENT SETTINGS, NO DESATURATION NOTED. SUCTIONED SECRETIONS. TUBE FEEDING TOLERATED WELL, NO RESIDUAL NOTED UPON CHECKING. PT STILL HAS LOOSE BM. KEPT WELL RESTED. NEEDS ATTENDED. CALL LIGHT PLACED W/IN REACH. ISOLATION PRECAUTION OBSERVED. ENDORSED TO PM RN FOR TOÑO.
--- NOTE | 2017-02-02 19:22 | NUR ---
PT RCVD ON VENT WITH NOTED SETTINGS. SXN SMALL AMOUNT OF YELLOWISH WHITE THICK SECRETIONS. BILATERAL BS NOTED. VENT ALARM CHECKED AND AUDIBLE. VENT PLUGGED INTO RED OUTLET,AMBU BAG AT [facility]. NO RESPIRATORY DISTRESS NOTED, WILL CONTINUE TO MONITOR.
[2017-02-03] VITALS: BP 98/48
[2017-02-03] MEDS: ALBUTEROL FS 2.5 MG/0.5 ML VIAL.NEB NEB SCH ×4 (01:18→19:25)
[2017-02-03] MEDS: IPRATROPIUM NEB FS 0.5 MG/2.5 ML AMPUL.NEB IH SCH ×4 (01:18→19:25)
[2017-02-03 04:00] VITALS: BP 102/47
[2017-02-03] MEDS: RENAL NOVASOURCE 1,000 ML BOTTLE GT PRN (05:46)
[2017-02-03] MEDS: MEROPENEM 500 MG in IV NS 0.9% 50 ML IV SCH ×2 (05:46→17:23)
--- NOTE | 2017-02-03 06:26 | NUR ---
RN CLOSING NOTES PATIENT WITH NO ACUTE CHANGE IN CONDITION OBSERVED OVERNIGHT. PATIENT STABLE. GTF INFUSING WELL, NO GASTRIC RESIDUAL NOTED. REMAINS SR WITH HR OF 60. NEEDS ANTICIPATED AND MET. AM CARE RENDERED. WOUND TREATMENT RENDERED. TRACH CARE PROVIDED. WILL ENDORSE ACCORDINGLY FOR CONTINUITY OF CARE.
[2017-02-03 08:00] VITALS: BP 95/52
[2017-02-03] MEDS: PANTOPRAZOLE 40 MG/PACK PACK GT SCH ×2 (08:25→22:06)
[2017-02-03] MEDS: Z GUARD REMEDY 2 OZ OINT TP SCH ×2 (08:25→22:06)
[2017-02-03] MEDS: NEUTRA PHOS 1 POWD.PACKET GT SCH ×2 (08:25→17:23)
[2017-02-03] MEDS: ACIDOPHILUS/BULGARICUS 1 EACH TAB.CHEW GT SCH ×2 (08:25→17:24)
[2017-02-03] MEDS: MIDODRINE HCL (5MG) 5 MG TABLET PO SCH ×3 (08:25→17:26)
[2017-02-03] MEDS: VIT B CMPLX 3/FA/VIT C/BIOTIN 1 TAB TABLET GT SCH (08:25)
[2017-02-03] MEDS: AMIODARONE HCL 200 MG TABLET GT SCH (08:26)
[2017-02-03] MEDS: MULTIVITAMINS,THERAPEUTIC 1 UDTAB TABLET GT SCH (08:26)
[2017-02-03] MEDS: ESCITALOPRAM OXALATE (10 MG) 10 MG TABLET GT SCH (08:26)
[2017-02-03] MEDS: NYSTATIN TOP POWDER 15 GM BOTTLE TP SCH ×2 (08:27→17:26)
[2017-02-03] MEDS: LINEZOLID 600 MG TABLET PO SCH ×2 (08:27→22:06)
[2017-02-03] MEDS: MUPIROCIN OINT 2% 22 GM TUBE SCH ×2 (08:27→22:06)
[2017-02-03] MEDS: PROSOURCE / PROSTAT (PYXIS) 30 ML UDC GT SCH ×2 (08:28→17:27)
[2017-02-03] MEDS: HEPARIN SODIUM, PORCINE 5000 UNITS/1 ML VIAL SQ SCH ×2 (08:29→22:07)
[2017-02-03 12:00] VITALS: BP 98/44
--- NOTE | 2017-02-03 14:35 | NUR ---
RT RECEIVED PT TRACH'D WITH SHILEY #6 CUFFED ON VENT WITH SETTINGS PER MD ORDER. GRADER OPERATOR DONE. BILAT BREATH SOUNDS ON AUSCULTATION. TRACH SECURED AND AIRWAY PATENT. VENT PLUGGED INTO RED OUTLET. ALARMS ON AND FUNCTIONING PROPERLY. AMBU BAG AT HEAD OF BED. TX'S GIVEN ORDERED. NO ADVERSE REACTIONS OBSERVED. NO SOB OR SIGNS OF DISTRESS NOTED AT THIS TIME. WILL CONTINUE TO MONITOR THE PATIENT FOR ANY CHANGES. Addendum: 02/03/17 at 1441 by IVAN STRAUSS RT Amended: Links added.
[2017-02-03 16:00] VITALS: BP 118/55
--- NOTE | 2017-02-03 17:53 | NUR ---
ALIGNING INSPECTOR NOTE 0720: Received patient awake, A/Ox2 able to make needs known by gestures or mouthing words. With trache to vent, tolerated settings well.With GT intact, feeding tolerated well, no residuals, kept HOB elevated. S/E by Dr. Piper with order of transfer to tele, CN aware. On isolation precaution for MRSA nares,maintained and observed. 1200: Daughter at bedside, updated re:the patient, all questions were answered. 1300: S/[facility] Dr. Kimball, with order of HD tomorrow. 1630: S/E by ID, no new order at this time. 1750: No any significant changes noted at this time.Kept clean, warm and dry. Needs attended. Kept call light at reach.
--- NOTE | 2017-02-03 19:15 | NUR ---
RN INITIAL NOTES RECEIVED PATIENT AWAKE AND ALERT, NO ACUTE DISTRESS OBSERVED, DENIES ANY PAIN AND DISCOMFORT. [facility], TOLERATING WELL. PATIENT'S FIO2 TITRATED DOWN TO 40% THIS AM, PATIENT TOLERATING WELL, SATURATING WELL. SR WITH HR OF 64. GTF INFUSING WELL, NO GASTRIC RESIDUAL NOTED. L WRIST G22, INTACT AND PATENT, FLUSHED AND NO SIGNS OF INFILTRATION. R CHESTWALL HD CATH WITH DRESSING INTACT. PATIENT'S NEEDS ANTICIPATED AND MET.SAFETY AND COMFORT ENSURED. BED IN LOW AND LOCKED POSITION. CALL LIGHT IN REACH. WILL MONITOR.
[2017-02-03 20:00] VITALS: BP 105/60
[2017-02-04] VITALS (11 sets, daily range): BP systolic 90–126; BP diastolic 47–80
[2017-02-04] MEDS: IPRATROPIUM NEB FS 0.5 MG/2.5 ML AMPUL.NEB IH SCH ×4 (01:40→19:28)
[2017-02-04] MEDS: ALBUTEROL FS 2.5 MG/0.5 ML VIAL.NEB NEB SCH ×4 (01:41→19:28)
[2017-02-04] MEDS: MEROPENEM 500 MG in IV NS 0.9% 50 ML IV SCH ×2 (05:06→16:01)
--- NOTE | 2017-02-04 06:28 | NUR ---
RN CLOSING NOTES PATIENT WITH NO ACUTE DISTRESS OBSERVED OVERNIGHT. PATIENT WITH NO DISCOMFORT. ABLE TO SLEEP COMFORTABLY. ALL DUE MEDS GIVEN ORDERED. GTF INFUSING WELL, NO GASTRIC RESIDUAL NOTED. AM LABS DRAWN. TURNED AND REPOSITIONED. SAFETY AND COMFORT ENSURED AT ALL TIMES. WILL ENDORSE ACCORDINGLY FOR CONTINUITY OF CARE. Addendum: 02/04/17 at 0637 by JORDIN LYON RN REMAINS SR ON TELE, HR IN THE 60s. AIRWAY SUCTIONED AND KEPT CLEAR, TOLERATED MECH VENT WELL.
[2017-02-04 06:32] LABS: BASOPHILS % (AUTO) 0.5 % (0.0-2.0); EOSINOPHILS # (AUTO) 0.4 /CMM (0.0-0.7); EOSINOPHILS % (AUTO) 4.4 % (0.0-6.0); HEMATOCRIT 28 % (33-45); HEMOGLOBIN 9.1 g/dL (11.5-14.8); LYMPHOCYTES # (AUTO) 1.9 /CMM (0.8-4.8); LYMPHOCYTES % (AUTO) 22.9 % (20.0-44.0); MEAN CORPUSCULAR HEMOGLOBIN 29 PG (26.0-33.0); MEAN CORPUSCULAR HGB CONC 33 g/dl (31.0-36.0); MEAN CORPUSCULAR VOLUME 88 fL (82-100); MONOCYTES # (AUTO) 0.6 /CMM (0.1-1.30); MONOCYTES % (AUTO) 7.5 % (2.0-12.0); NEUTROPHILS # (AUTO) 5.4 /CMM (1.8-8.9); NEUTROPHILS % (AUTO) 64.7 % (43.0-81.0); PLATELET COUNT (AUTO) 345 /CMM (150-450); RDW COEFFICIENT OF VARIATION 20.7 (11.5-15.0); RED BLOOD CELL COUNT(AUTO) 3.12 MIL/uL (4.0-5.2); WHITE BLOOD COUNT (AUTO) 8.4 K/uL (4.3-11.0)
[2017-02-04 06:47] LABS: CALCIUM, SERUM 8.7 mg/dL (8.5-10.1); CREATININE 3.2 mg/dL (0.6-1.3); MAGNESIUM 1.8 mg/dL (1.8-2.4); POTASSIUM 4.2 mmol/L (3.5-5.1)
--- NOTE | 2017-02-04 07:15 | NUR ---
RN INITIAL NOTE PATIENT RECEIVED IN BED, SLEEPING. PT IS OBTUNDED, NON VERBAL. PT HAS TRACH,ELTON #6, AC-14, VT-450,FI02-40%, PEEP-5. SATING WELL. NO S/S OF RESPIRATORY DISTRESS OR SOB. PT IS SINUS RHYTHM ON TELE MONITOR. SKIN IS WARM AND DRY TO TOUCH.IV SITE FLUSHED, PATENT. GTUBE, PATENT, RUNNING NOVASOURCE AT 30ML/HR. SAFETY PRECAUTIONS IN PLACE, BED IN LOCKED, LOW POSITION, TWO SIDE RAILS UP WITH ALARM ON. CALL LIGHT WITHIN EASY REACH. WILL CONTINUE TO MONITOR.
[2017-02-04 07:26] LABS: PHOSPHORUS 8.6 mg/dL (2.5-4.9)
[2017-02-04] MEDS ORDERED: IV NS 0.9% 250 ML IV ONE (07:58)
[2017-02-04] MEDS: MULTIVITAMINS,THERAPEUTIC 1 UDTAB TABLET GT SCH (08:03)
[2017-02-04] MEDS: PROSOURCE / PROSTAT (PYXIS) 30 ML UDC GT SCH ×2 (08:03→16:05)
[2017-02-04] MEDS: HEPARIN SODIUM, PORCINE 5000 UNITS/1 ML VIAL SQ SCH ×2 (08:04→21:04)
[2017-02-04] MEDS: PANTOPRAZOLE 40 MG/PACK PACK GT SCH ×2 (08:04→21:03)
[2017-02-04] MEDS: NEUTRA PHOS 1 POWD.PACKET GT SCH ×3 (08:04→09:00)
[2017-02-04] MEDS: ACIDOPHILUS/BULGARICUS 1 EACH TAB.CHEW GT SCH ×2 (08:05→16:01)
[2017-02-04] MEDS: LINEZOLID 600 MG TABLET PO SCH ×2 (08:05→21:03)
[2017-02-04] MEDS: VIT B CMPLX 3/FA/VIT C/BIOTIN 1 TAB TABLET GT SCH (08:05)
[2017-02-04] MEDS: ESCITALOPRAM OXALATE (10 MG) 10 MG TABLET GT SCH (08:05)
[2017-02-04] MEDS: AMIODARONE HCL 200 MG TABLET GT SCH (08:07)
[2017-02-04] MEDS: MUPIROCIN OINT 2% 22 GM TUBE SCH ×2 (08:08→21:03)
[2017-02-04] MEDS: NYSTATIN TOP POWDER 15 GM BOTTLE TP SCH ×2 (08:08→16:03)
[2017-02-04] MEDS: MIDODRINE HCL (5MG) 5 MG TABLET PO SCH ×3 (08:08→18:03)
[2017-02-04] MEDS: Z GUARD REMEDY 2 OZ OINT TP SCH ×2 (08:08→21:03)
--- NOTE | 2017-02-04 10:48 | NUR ---
RN NOTE PHOSPHOROUS IS HIGH, MADE AWARE
[2017-02-04] MEDS: SEVELAMER CARBONATE 0.8 GM POWD.PACK GT SCH ×3 (11:00→18:03)
--- NOTE | 2017-02-04 11:20 | NUR ---
RN NOTE PATIENT RECEIVING HD
[2017-02-04] MEDS: ACETAMINOPHEN 650 MG/20.3 ML UDC GT PRN ×2 (16:02→21:03)
[2017-02-04] MEDS: LORAZEPAM 0.5 MG TABLET GT PRN (18:04)
[2017-02-04] MEDS: diphenhydrAMINE HCL 25 MG CAPSULE PO PRN (18:08)
--- NOTE | 2017-02-04 19:01 | NUR ---
RN CLOSING NOTE ALL MD ORDERS CARRIED OUT. PATIENT KEPT CLEAN AND DRY. SAFETY PRECAUTIONS IN PLACE AT ALL TIMES. ISOLATION PRECAUTIONS OBSERVED AT ALL TIMES. WILL GIVE REPORT TO PM RN FOR TOÑO.
--- NOTE | 2017-02-04 19:04 | NUR ---
RN INITIAL NOTES RECEIVED PATIENT AWAKE AND ALERT, DENIES ANY PAIN AND DISCOMFORT. ON MECH VENT, TOLERATING WELL. SR WITH HR OF 62. GTF INFUSING WELL, NO GASTRIC RESIDUAL NOTED. L WRIST G22, INTACT AND PATENT, FLUSHED AND NO SIGNS OF INFILTRATION. R CHESTWALL HD CATH WITH DRESSING INTACT. PATIENT'S NEEDS ANTICIPATED AND MET.SAFETY AND COMFORT ENSURED. BED IN LOW AND LOCKED POSITION. CALL LIGHT IN REACH. WILL MONITOR.
[2017-02-05] VITALS: BP 94/55
[2017-02-05] MEDS: ALBUTEROL FS 2.5 MG/0.5 ML VIAL.NEB NEB SCH ×4 (01:20→19:13)
[2017-02-05] MEDS: IPRATROPIUM NEB FS 0.5 MG/2.5 ML AMPUL.NEB IH SCH ×4 (01:20→19:13)
[2017-02-05 04:00] VITALS: BP 93/54
[2017-02-05] MEDS ORDERED: IV SET PRIMARY PUMP SET 1 EA INFUS.SET MC ONE (05:14)
[2017-02-05] MEDS ORDERED: IV NS 0.9% 250 ML IV ONE (05:14)
[2017-02-05] MEDS ORDERED: SECONDARY IV SET 1 EA INFUS.SET MC ONE (05:15)
[2017-02-05] MEDS: MEROPENEM 500 MG in IV NS 0.9% 50 ML IV SCH ×2 (05:42→16:42)
[2017-02-05] MEDS: RENAL NOVASOURCE 1,000 ML BOTTLE GT PRN (05:43)
--- NOTE | 2017-02-05 06:49 | NUR ---
RN CLOSING NOTES PATIENT WITH NO ACUTE CHANGE IN CONDITION OBSERVED OVERNIGHT. REMAINS SR AT 60s. AIRWAY KEPT CLEAR, TOLERATED MECH VENT, SUCTIONED AIRWAY NEEDED. GTF INFUSING WELL, NO GASTRIC RESIDUAL NOTED. KEPT CLEAN AND DRY. TURNED AND REPOSITIONED. TRACH CARE RENDERED. PATIENT'S NEEDS ANTICIPATED AND MET. SAFETY AND COMFORT ENSURED. BED IN LOW AND LOCKED POSITION. CALL LIGHT IN REACH. WILL ENDORSE ACCORDINGLY FOR CONTINUITY OF CARE.
--- NOTE | 2017-02-05 07:10 | NUR ---
RN INITIAL NOTE PATIENT RECEIVED IN BED, RESTING. RESPONDS TO NAME. AWAKE, NON VERBAL, MOUTHS WORDS. NO S/S OF PAIN OR DISCOMFORT. PATIENT HAS TRACH, VENT SHILEY #6, AC-14- VT-450, FI02-40%, PEEP-5. SATING WELL. NO S/S OF RESPIRATORY DISTRESS OR SOB. PATIENT IS SINUS RHYTHM ON TELE MONITOR WITH HEART RATE IN THE 60'S. GTUBE FLUSHED, PLACEMENT CONFIRMED. NOVASOURCE RUNNING AT 30ML/HR. TOLERATING SETTING WELL. NO RESIDUAL NOTED. IV SITE FLUSHED, PATENT. SKIN IS WARM AND DRY TO TOUCH. SAFETY PRECAUTIONS IN PLACE, BED IN LOCKED, LOW POSITION WITH TWO SIDE RAILS UP. CALL LIGHT WITHIN EASY REACH. WILL MONITOR CLOSELY.
[2017-02-05 08:00] VITALS: BP 99/61
[2017-02-05] MEDS: ESCITALOPRAM OXALATE (10 MG) 10 MG TABLET GT SCH (09:13)
[2017-02-05] MEDS: SEVELAMER CARBONATE 0.8 GM POWD.PACK GT SCH ×3 (09:13→16:41)
[2017-02-05] MEDS: MULTIVITAMINS,THERAPEUTIC 1 UDTAB TABLET GT SCH (09:13)
[2017-02-05] MEDS: ACIDOPHILUS/BULGARICUS 1 EACH TAB.CHEW GT SCH ×2 (09:13→16:41)
[2017-02-05] MEDS: PANTOPRAZOLE 40 MG/PACK PACK GT SCH ×2 (09:14→21:36)
[2017-02-05] MEDS: AMIODARONE HCL 200 MG TABLET GT SCH (09:14)
[2017-02-05] MEDS: VIT B CMPLX 3/FA/VIT C/BIOTIN 1 TAB TABLET GT SCH (09:14)
[2017-02-05] MEDS: LINEZOLID 600 MG TABLET PO SCH ×2 (09:14→21:36)
[2017-02-05] MEDS: MIDODRINE HCL (5MG) 5 MG TABLET PO SCH ×3 (09:14→16:44)
[2017-02-05] MEDS: NEUTRA PHOS 1 POWD.PACKET GT SCH ×2 (09:15→16:41)
[2017-02-05] MEDS: NYSTATIN TOP POWDER 15 GM BOTTLE TP SCH ×2 (09:16→16:47)
[2017-02-05] MEDS: PROSOURCE / PROSTAT (PYXIS) 30 ML UDC GT SCH ×2 (09:16→16:41)
[2017-02-05] MEDS: Z GUARD REMEDY 2 OZ OINT TP SCH ×2 (09:16→21:36)
[2017-02-05] MEDS: MUPIROCIN OINT 2% 22 GM TUBE SCH ×2 (09:16→21:36)
[2017-02-05] MEDS: diphenhydrAMINE HCL 25 MG CAPSULE PO PRN (09:23)
[2017-02-05] MEDS: ACETAMINOPHEN 650 MG/20.3 ML UDC GT PRN ×2 (09:23→16:41)
[2017-02-05 12:00] VITALS: BP 111/72
[2017-02-05 16:00] VITALS: BP 114/70
--- NOTE | 2017-02-05 18:02 | NUR ---
RT END OF THE SHIFT REPORT, PT 66 Y OLD FEMALE. RECEIVED @ 0700 AM TRACHED [place] # 6 DCT ON VENT MOUNTAIN GUIDE DONE. BILATERALLY B/S ON AUSCULTATION. SUCTIONED SMALL AMOUNTS OF LOSE WHITE/DOLL SECRETIONS. ALARMS CHECKED AND FUNCTIONING PROPERLY. VENT PLUGGED INTO RED OUTLET. AMBU BAG AT THE BEDSIDE. TX'S GIVEN ORDERED. HME CHANGED NO SIGNS OF DISTRESS NOTED THROUGHOUT SHIFT. WILL CONTINUE TO MONITOR. REPORT WILL PASS TO PM SHIFT. Addendum: 02/05/17 at 1804 by FIDENCIO DARDEN RT Amended: Links added.
--- NOTE | 2017-02-05 19:13 | NUR ---
PT RCVD ON VENT WITH NOTED SETTINGS. SXN SMALL AMOUNT OF YELLOWISH WHITE THICK SECRETIONS. BILATERAL BS NOTED. VENT ALARM CHECKED AND AUDIBLE. VENT PLUGGED INTO RED OUTLET,AMBU BAG AT [facility]. TX'S GIVEN ORDERED, NO SOB OR RESPIRATORY DISTRESS NOTED AT THIS TIME, WILL CONTINUE TO MONITOR THE PATIENT.
[2017-02-05 20:00] VITALS: BP 115/70
--- NOTE | 2017-02-05 20:00 | NUR ---
TELE 1 RN NOTE PT IN BED AWAKE. A/O X 2, REMAIN ON VENT/TRACH. TOLERATING THE SETTINGS WELL. NO DISTRESS OR DISTRESS NOTED. DENIES PAIN. 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 ISOLATION PRECAUTIONS TAKEN. ON TELE SR WITH 1ST DEGREE AV BLOCK, BBB HR 60. REPOSITION HER FOR SKIN MANAGEMENT AND WILL DO Q2H. GTF NOVASOURCE INFUSING WELL AT 30 ML/HR, 0 ML RESIDUAL NOTED. KEPT HER HOB ELEVATED. SIDE RAILS UP X 3 AND CALL LIGHT WITHIN REACH. VSS. CONTINUE TO MONITOR HER.
[2017-02-06] VITALS (7 sets, daily range): BP systolic 104–123; BP diastolic 57–68
[2017-02-06] MEDS: ALBUTEROL FS 2.5 MG/0.5 ML VIAL.NEB NEB SCH ×4 (00:37→20:28)
[2017-02-06] MEDS: IPRATROPIUM NEB FS 0.5 MG/2.5 ML AMPUL.NEB IH SCH ×4 (00:37→20:28)
[2017-02-06] MEDS: MEROPENEM 500 MG in IV NS 0.9% 50 ML IV SCH ×2 (04:32→17:32)
[2017-02-06] MEDS: RENAL NOVASOURCE 1,000 ML BOTTLE GT PRN (04:33)
[2017-02-06 06:34] LABS: BASOPHILS % (AUTO) 0.4 % (0.0-2.0); EOSINOPHILS # (AUTO) 0.6 /CMM (0.0-0.7); EOSINOPHILS % (AUTO) 7.1 % (0.0-6.0); HEMATOCRIT 29 % (33-45); HEMOGLOBIN 9.4 g/dL (11.5-14.8); LYMPHOCYTES # (AUTO) 1.7 /CMM (0.8-4.8); LYMPHOCYTES % (AUTO) 19.8 % (20.0-44.0); MEAN CORPUSCULAR HEMOGLOBIN 29 PG (26.0-33.0); MEAN CORPUSCULAR HGB CONC 33 g/dl (31.0-36.0); MEAN CORPUSCULAR VOLUME 89 fL (82-100); MONOCYTES # (AUTO) 0.7 /CMM (0.1-1.30); MONOCYTES % (AUTO) 7.6 % (2.0-12.0); NEUTROPHILS # (AUTO) 5.6 /CMM (1.8-8.9); NEUTROPHILS % (AUTO) 65.1 % (43.0-81.0); PLATELET COUNT (AUTO) 293 /CMM (150-450); RDW COEFFICIENT OF VARIATION 20.6 (11.5-15.0); RED BLOOD CELL COUNT(AUTO) 3.22 MIL/uL (4.0-5.2); WHITE BLOOD COUNT (AUTO) 8.7 K/uL (4.3-11.0)
--- NOTE | 2017-02-06 06:39 | NUR ---
TELE 1 RN NOTE PT IN BED AWAKE. NO DISTRESS OR DISCOMFORT NOTED. DENIES PAIN. GTF INFUSING WELL, 0 ML RESIDUAL NOTED. REPOSITION HER Q2H, KEPT HER DRY AND CLEAN. ALL NEEDS ATTENDED. WILL ENDORSE TO DAY SHIFT NURSE FOR CONTINUE TO CARE.
[2017-02-06 06:52] LABS: CALCIUM, SERUM 9.2 mg/dL (8.5-10.1); CREATININE 2.9 mg/dL (0.6-1.3); MAGNESIUM 1.9 mg/dL (1.8-2.4); PHOSPHORUS 6.1 mg/dL (2.5-4.9); POTASSIUM 4.1 mmol/L (3.5-5.1)
--- NOTE | 2017-02-06 07:10 | NUR ---
RN INITIAL NOTES: REC'D PT ASLEEP ON BED, NOT IN ANY DISTRESS, EASILY AROUSABLE, A/O X2. PT ON MECH VENT VIA TRACH, SATURATING 94%. SECRETIONS SUCTIONED. ON TELEMONITOR, SR. HAS PEG PATENT & INTACT, ON CONT TUBE FEEDING NOVASOURCE X 30 CC/HR INFUSING WELL, NO RESIDUAL NOTED UPON CHECKING. HAS R CW HD CATH IN PLACE. HAS L HAND SL, FLUSHED, PATENT & INTACT. PROVIDED COMFORT & SAFETY MEASURES. BED KEPT LOW & IN LOCKED POS. CALL LIGHT PLACED W/IN REACH. ISOLATION PREC OBSERVED. WILL CONTINUE TO OBSERVE.
[2017-02-06] MEDS: MIDODRINE HCL (5MG) 5 MG TABLET PO SCH ×3 (08:57→17:32)
[2017-02-06] MEDS: ESCITALOPRAM OXALATE (10 MG) 10 MG TABLET GT SCH (08:57)
[2017-02-06] MEDS: VIT B CMPLX 3/FA/VIT C/BIOTIN 1 TAB TABLET GT SCH (08:57)
[2017-02-06] MEDS: LINEZOLID 600 MG TABLET PO SCH ×2 (08:57→21:17)
[2017-02-06] MEDS: SEVELAMER CARBONATE 0.8 GM POWD.PACK GT SCH ×3 (08:57→17:32)
[2017-02-06] MEDS: ACIDOPHILUS/BULGARICUS 1 EACH TAB.CHEW GT SCH ×2 (08:57→17:32)
[2017-02-06] MEDS: MULTIVITAMINS,THERAPEUTIC 1 UDTAB TABLET GT SCH (08:57)
[2017-02-06] MEDS: AMIODARONE HCL 200 MG TABLET GT SCH (08:57)
[2017-02-06] MEDS: PANTOPRAZOLE 40 MG/PACK PACK GT SCH ×2 (08:57→21:17)
[2017-02-06] MEDS: PROSOURCE / PROSTAT (PYXIS) 30 ML UDC GT SCH ×2 (08:58→17:32)
[2017-02-06] MEDS: Z GUARD REMEDY 2 OZ OINT TP SCH ×2 (08:58→21:20)
[2017-02-06] MEDS: NEUTRA PHOS 1 POWD.PACKET GT SCH ×2 (08:58→17:00)
[2017-02-06] MEDS: MUPIROCIN OINT 2% 22 GM TUBE SCH ×2 (08:58→21:16)
[2017-02-06] MEDS: NYSTATIN TOP POWDER 15 GM BOTTLE TP SCH ×2 (08:59→17:33)
--- NOTE | 2017-02-06 09:00 | NUR ---
RN NOTES: NEUTRA PHOS MED NOT GIVE DUE TO P 6.1 (HIGH).
--- NOTE | 2017-02-06 15:25 | NUR ---
RN NOTES: HD TOLERATED WELL, 2.5 L OUTPUT.
--- NOTE | 2017-02-06 19:17 | NUR ---
RN CLOSING NOTES: NO ACUTE CHANGES NOTED W/IN SHIFT. PT TOLERATED PRESCRIBED MECH VENT SETTINGS. SECRETIONS SUCTIONED. PEG KEPT PATENT & INTACT, ON CONT TUBE FEEDING NOVASOURCE X 30 CC/HR INFUSING WELL, NO RESIDUAL NOTED W/IN SHIFT. R CW HD CATH KEPT IN PLACE. L HAND SL, KEPT PATENT & INTACT. KEPT WELL RESTED. BED KEPT LOW & IN LOCKED POS. CALL LIGHT PLACED W/IN REACH. ISOLATION PREC OBSERVED. ENDORSED TO PM RN FOR TOÑO.
--- NOTE | 2017-02-06 20:00 | NUR ---
TELE 1 RN NOTE RECEIVED PT IN BED AWAKE. A/O X 2 MOUTH WORDS. ON VENT/TRACH, TOLERATING THE SETTINGS WELL. NO DISTRESS OR DISCOMFORT NOTED. DENIES PAIN. SUCTIONED HER FREQUENTLY SMALL AMOUNT OF THICK SECRETIONS NOTED. ON TELE SR WITH 1ST DEGREE AV BLOCK AND BBB HR 66. GTF NOVASOURCE INFUSING AT 30 ML/HR, 5 ML RESIDUAL NOTED. KEPT HER HOB ELEVATED. REPOSITION HER Q2H. KEPT HER DRY AND CLEAN. ALL NEEDS ATTENDED. VSS. CONTINUE TO MONITOR HER.
[2017-02-06] MEDS ORDERED: IV NS 0.9% 250 ML IV ONE (21:03)
[2017-02-07] VITALS: BP 99/62
[2017-02-07] MEDS: ALBUTEROL FS 2.5 MG/0.5 ML VIAL.NEB NEB SCH ×3 (01:34→13:55)
[2017-02-07] MEDS: IPRATROPIUM NEB FS 0.5 MG/2.5 ML AMPUL.NEB IH SCH ×3 (01:34→13:55)
[2017-02-07 04:00] VITALS: BP 95/51
[2017-02-07] MEDS ORDERED: Z GUARD REMEDY 2 OZ OINT TP PRN (05:00)
[2017-02-07] MEDS: MEROPENEM 500 MG in IV NS 0.9% 50 ML IV SCH (05:07)
[2017-02-07] MEDS: RENAL NOVASOURCE 1,000 ML BOTTLE GT PRN (05:08)
--- NOTE | 2017-02-07 06:00 | NUR ---
TELE 1 RN NOTE PT NOTED DESATURATING AT 88%. FIO2 40%, RT CHECKED THE PT AND INCREASED THE FIO2 TO 50%. o2 SAT WENT UP TO 94%. CHARGE NURSE INFORMED.
--- NOTE | 2017-02-07 06:40 | NUR ---
TELE 1 RN NOTE PT IN BED AWAKE. NO DISTRESS OR DISCOMFORT NOTED. DENIES PAIN. TOLERATING VENT SETTINGS. KEPT HER DRY AND CLEAN. GTF INFUSING WELL, 0 ML RESIDUAL NOTED. ON TELE SR WITH 1ST DEGREE AV BLOCK WITH BBB HR 70. REPOSITION HER Q2H DURING THE SHIFT. SIDE RIALS UP X 2 AND CALL LIGHT WITHIN REACH. WILL ENDORSE TO DAY SHIFT NURSE FOR CONTINUE TO CARE.
[2017-02-07 08:00] VITALS: BP 90/55
[2017-02-07] MEDS: SEVELAMER CARBONATE 0.8 GM POWD.PACK GT SCH ×2 (08:59→12:16)
[2017-02-07] MEDS: LINEZOLID 600 MG TABLET PO SCH (09:00)
[2017-02-07] MEDS: MULTIVITAMINS,THERAPEUTIC 1 UDTAB TABLET GT SCH (09:00)
[2017-02-07] MEDS: MIDODRINE HCL (5MG) 5 MG TABLET PO SCH ×2 (09:00→12:17)
[2017-02-07] MEDS: Z GUARD REMEDY 2 OZ OINT TP SCH (09:00)
[2017-02-07] MEDS: NYSTATIN TOP POWDER 15 GM BOTTLE TP SCH (09:00)
[2017-02-07] MEDS: MUPIROCIN OINT 2% 22 GM TUBE SCH (09:00)
[2017-02-07] MEDS: ACIDOPHILUS/BULGARICUS 1 EACH TAB.CHEW GT SCH (09:01)
[2017-02-07] MEDS: VIT B CMPLX 3/FA/VIT C/BIOTIN 1 TAB TABLET GT SCH (09:01)
[2017-02-07] MEDS: ESCITALOPRAM OXALATE (10 MG) 10 MG TABLET GT SCH (09:01)
[2017-02-07] MEDS: PANTOPRAZOLE 40 MG/PACK PACK GT SCH (09:02)
[2017-02-07] MEDS: AMIODARONE HCL 200 MG TABLET GT SCH (09:02)
[2017-02-07] MEDS ORDERED: SEVE0.8P GT (09:05)
[2017-02-07] MEDS ORDERED: MERO500V IV (09:05)
[2017-02-07] MEDS ORDERED: MUPI22OI7 (09:05)
[2017-02-07] MEDS ORDERED: Midodrine Hcl (5MG) PO (09:05)
[2017-02-07] MEDS ORDERED: LINE600T PO (09:05)
[2017-02-07] MEDS: NEUTRA PHOS 1 POWD.PACKET GT SCH (09:06)
[2017-02-07] MEDS: PROSOURCE / PROSTAT (PYXIS) 30 ML UDC GT SCH (09:08)
[2017-02-07 12:00] VITALS: BP 96/57
[2017-02-07 12:17] VITALS: BP 96/57
--- NOTE | 2017-02-07 16:00 | NUR ---
PT IN STABLE CONDITION.NO S/S OF DISTRESS ,MECH VENTILATION WELL TOLERATED.ALL M.D ORDERS NOTED AND CARRIED OUT REPORT GIVEN TO Huyen AT [facility].FAMILY NOTIFIED.ALL BELONGINGS AND DISCHARGE INSTRUCTIONS PROVIDED TO FAMILY.
== END 2017-02-07 16:26 | DRG 870 ==
LOC: ER 15:33 → TELE-TD 17:42 → TELE1 01-31 10:09 → ICUOV 02-01 04:19 → TELE-TD 02-02 17:32 → TELE1 02-03 08:36
PROVIDERS: ADMIT Internal Medicine Nephrology; ATTEND Internal Medicine Nephrology
PROC: 5A1955Z Respiratory Ventilation, Greater than 96 Consecutive Hours (ICD-10-PCS; principal; 2017-01-28)
PROC: 5A1D60Z (ICD-10-PCS; 2017-01-30)
DX: A41.9 Sepsis, unspecified organism (principal); N18.6 End stage renal disease; R65.21 Severe sepsis with septic shock; J96.21 Acute and chronic respiratory failure with hypoxia; I21.4 Non-ST elevation (NSTEMI) myocardial infarction; J95.851 Ventilator associated pneumonia; Z99.11 Dependence on respirator [ventilator] status; Z99.2 Dependence on renal dialysis; Z79.899 Other long term (current) drug therapy; E11.22 Type 2 diabetes mellitus with diabetic chronic kidney disease; E83.39 Other disorders of phosphorus metabolism; E87.6 Hypokalemia; F41.9 Anxiety disorder, unspecified; I25.10 Atherosclerotic heart disease of native coronary artery without angina pectoris; Y84.8 Other medical procedures as the cause of abnormal reaction of the patient, or of later complication, without mention of misadventure at the time of the procedure; Z93.0 Tracheostomy status; Z95.0 Presence of cardiac pacemaker; I48.0 Paroxysmal atrial fibrillation; I27.2 Other secondary pulmonary hypertension; Z22.322 Carrier or suspected carrier of Methicillin resistant Staphylococcus aureus; K56.41 Fecal impaction; Z88.1 Allergy status to other antibiotic agents; R14.0 Abdominal distension (gaseous); Y82.8 Other medical devices associated with adverse incidents; Y92.129 Unspecified place in nursing home as the place of occurrence of the external cause; L98.9 Disorder of the skin and subcutaneous tissue, unspecified; R13.10 Dysphagia, unspecified
CPT/HCPCS: 31720; 36415; 36600; 71010-TC; 80048-TC; 80053-TC; 80076-TC; 82962-TC; 83605-TC; 83735-TC; 84100-TC; 84484-TC; 85025-TC; 85027-TC; 85610-TC; 85730-TC; 87040-TC; 87081-TC; 90935-TC; 93307-TC; 93970-TC; 94002-TC; 94003-TC; 94760-TC; 94762-TC; A4216; A4606; J0885; J1265; J1644; J2185; J2543; J7040; J7050; J7060; P9047; Q0162; Q0163; Z7610